=== PATIENT | female | born 1950 | race American Indian/Alaskan Native ===

== ENCOUNTER 2020-05-01 19:22 | Observation (INO) | payer MEDICARE ==
[2020-05-01] MEDS ORDERED: ASPIRIN 325 MG TAB PO ONE (20:05)
--- NOTE | 2020-05-01 20:22 | Emergency Department Report ---
ED Chest Pain HPI - General Chief Complaint: Chest Pain Stated Complaint: CHEST PAIN PUI?: No Time Seen by Provider: 05/01/20 20:17 Source: EMS Mode of arrival: Stretcher Limitations: No Limitations - History of Present Illness Initial Comments: Patient is a 69-year-old female that presents emergency room with complaints of chest pain. Patient states the chest pain is worsened. Patient states the chest pain is in her epigastric and substernal region. Patient states that the chest pain is a pressure sensation. Patient denies shortness of breath. Patient denies nausea and vomiting. Patient denies fever and chills. Patient denies diaphoresis. Patient denies anxiety. Patient states that her primary care sent her here for evaluation. Patient states that her chest pain is a 4 to 5 out of 10. Patient states that her chest pain is better with rest. Patient states that her chest pain is worse with movement and exertion. Patient states she has a past medical history of diabetes hypertension, asthma, dementia and anxiety. Patient states she is living in a personal jail local to this hospital. Patient states she is compliant with all of her medications. Patient states her assisted-living is giving her medications. Patient at this time is alert and oriented x3. Patient is answering questions appropriately. Patient came to the emergency room with a copy of her med sheet and medical record from the assisted living. Patient's medical record and med list were reviewed. Patient denies recent travel. Patient denies recent international travel. Patient denies exposure to the novel coronavirus. Patient denies sick contacts. Patient denies fever and chills. Patient denies cough. Patient denies diarrhea. Patient denies coming in contact with anybody with symptoms of the novel coronavirus. MD Complaint: chest pain -: Sudden Onset: during rest Pain Location: substernal, epigastric Pain Radiation: none Severity: moderate Quality: pressure Consistency: constant Improves With: rest Worsens With: exertion, movement re: denies: nausea, vomting, diaphoresis, dyspnea, sense of impending doom Other Symptoms: denies: cough, fever, syncope, rash, acid taste in mouth, leg swelling, palpitations, burping Treatments Prior to Arrival: none Aspirin use within the Past 7 Days: (1) Yes - Related Data On Oral Contraceptives: No Allergies Allergy/AdvReac Type Severity Reaction Status Date / Time benazepril [From Lotensin] AdvReac Unknown Verified 05/01/20 19:42 lisinopril AdvReac Angioedema Verified 05/01/20 19:42 metformin AdvReac Unknown Verified 05/01/20 19:42 Heart Score - HEART Score History: Slightly suspicious EKG: Normal Age: > 65 Risk factors: > 3 risk factors or hx of atherosclerotic disease Troponin: < normal limit HEART Score: 4 ED Review of Systems ROS: Stated complaint: CHEST PAIN Other details as noted in HPI Constitutional: denies: chills, fever Eyes: denies: eye pain, eye discharge, vision change ENT: denies: ear pain, throat pain Respiratory: denies: cough, shortness of breath, wheezing Cardiovascular: chest pain. denies: palpitations Endocrine: no symptoms reported Gastrointestinal: abdominal pain. denies: nausea, diarrhea Genitourinary: denies: urgency, dysuria, discharge Musculoskeletal: denies: back pain, joint swelling, arthralgia Skin: denies: rash, lesions Neurological: denies: headache, weakness, paresthesias Psychiatric: denies: anxiety, depression Hematological/Lymphatic: denies: easy bleeding, easy bruising ED Past Medical Hx - Past Medical History Previous Medical History?: Yes Hx Hypertension: Yes Hx Diabetes: Yes Hx Asthma: Yes Hx Dementia: Yes Additional medical history: anxiety - Surgical History Past Surgical History?: Yes - Family History Family history: no significant - Social History Smoking Status: Never Smoker Substance Use Type: None ED Physical Exam - General Limitations: No Limitations General appearance: alert, in no apparent distress - Head Head exam: Present: atraumatic, normocephalic - Eye Eye exam: Present: normal appearance, PERRL Pupils: Present: normal accommodation - ENT ENT exam: Present: mucous membranes moist - Neck Neck exam: Present: normal inspection, full ROM. Absent: tenderness, meningismus - Respiratory Respiratory exam: Present: normal lung sounds bilaterally. Absent: respiratory distress, wheezes, rales - Cardiovascular Cardiovascular Exam: Present: regular rate, normal rhythm, normal heart sounds. Absent: systolic murmur, diastolic murmur, rubs, gallop - GI/Abdominal GI/Abdominal exam: Present: soft, tenderness (Epigastric tenderness to palpation. ), normal bowel sounds. Absent: distended, guarding - Rectal Rectal exam: Present: deferred - Extremities Exam Extremities exam: Present: normal inspection - Back Exam Back exam: Present: normal inspection - Neurological Exam Neurological exam: Present: alert, oriented X3 - Psychiatric Psychiatric exam: Present: normal affect, normal mood - Skin Skin exam: Present: warm, dry, intact, normal color. Absent: rash ED Course Vital Signs 05/01/20 05/01/20 05/01/20 19:28 19:36 19:46 Temperature 97.9 F Pulse Rate 65 65 61 Respiratory 16 16 15 Rate Blood Pressure 176/65 Blood Pressure 176/65 [left arm] O2 Sat by Pulse 99 98 Oximetry 05/01/20 05/01/20 05/01/20 20:00 20:30 21:00 Temperature Pulse Rate 62 67 64 Respiratory 14 13 12 Rate Blood Pressure 170/77 176/65 179/75 Blood Pressure [left arm] O2 Sat by Pulse 97 98 98 Oximetry - Reevaluation(s) Reevaluation #1: Patient states the pain is increasing. Patient will be given a GI cocktail and morphine. 05/01/20 21:11 Reevaluation #2: Patient states her pain is better. I discussed all results with patient. I discussed plan of care with patient. Patient agrees with plan of care and admission. Patient to be admitted to the hospitalist service. 05/01/20 21:56 - Consultations Consultation #1: Hospitalist consulted for admission. Hospitalist to admit patient. 05/01/20 21:59 JARRETT score - Jarrett Score Age > 65: (1) Yes Aspirin use within the Past 7 Days: (1) Yes 3 or more CAD Risk Factors: (1) Yes 2 or more Angina events in past 24 hrs: (1) Yes Known CAD with more than 50% Stenosis: (0) No Elevated Cardiac Markers: (0) No ST Deviation Greater than 0.5mm: (0) No JARRETT Score: 4 ED Medical Decision Making - Lab Data Result diagrams: 05/01/20 20:26 05/01/20 20:26 - EKG Data -: EKG Interpreted by Me EKG shows normal: sinus rhythm, axis, intervals, QRS complexes, ST-T waves Rate: normal - Radiology Data Radiology results: report reviewed, image reviewed interpreted by me: Chest x-ray: No pneumonia, no pneumothorax, no foreign body, no osseous findings, no acute findings CHEST 1 VIEW INDICATION: MAIN COMPARISON: None FINDINGS: SUPPORT DEVICES: None. HEART / MEDIASTINUM: No significant abnormality. LUNGS / PLEURA: No significant pulmonary or pleural abnormality. No pneumothorax. ADDITIONAL FINDINGS: IMPRESSION: 1. No acute cardiopulmonary disease - Medical Decision Making Patient is a 69-year-old female that presents emergency room with epigastric pain and chest pain. Patient's gastric region is reproducible. Patient given a GI cocktail, aspirin and morphine. Patient's chest pain improved with the epigastric tenderness did not change. Patient had a chest x-ray was negative for acute findings. Patient's EKG was negative for acute findings. Patient has a past medical history of diabetes and hypertension. Patient has an elevated heart score. Patient has significant cardiac risk factors. Patient admitted to the hospitalist service for further evaluation and treatment and observation and rule out ACS. - Differential Diagnosis ACS, GERD, chest pain, pneumonia, bronchitis, Critical Care Time: Yes Critical care time in (mins) excluding proc time.: 35 Critical care attestation.: If time is entered above; I have spent that time in minutes in the direct care of this critically ill patient, excluding procedure time. Critical Care Time: 35 minutes ED Disposition Clinical Impression: Epigastric pain Renal failure Qualifiers: Renal failure chronicity: acute Acute renal failure type: unspecified Qualified Code(s): N17.9 - Acute kidney failure, unspecified Chest pain Qualifiers: Chest pain type: unspecified Qualified Code(s): R07.9 - Chest pain, unspecified Disposition: 09 OP ADMIT IP TO THIS HOSP Is pt being admited?: Yes Does the pt Need Aspirin: No Condition: Critical Instructions: Chest Pain (ED) Time of Disposition: 21:57
--- NOTE | 2020-05-01 20:56 | XRay Report ---
CHEST 1 VIEW INDICATION: MAIN COMPARISON: None FINDINGS: SUPPORT DEVICES: None. HEART / MEDIASTINUM: No significant abnormality. LUNGS / PLEURA: No significant pulmonary or pleural abnormality. No pneumothorax. ADDITIONAL FINDINGS: IMPRESSION: 1. No acute cardiopulmonary disease Signer Name: Cj Carbajal MD Signed: 05/01/2020 8:52 PM Workstation Name: [id number]
[2020-05-01 21:02] LABS: Hematocrit 33.6 % (30.3-42.9); Hemoglobin 10.9 gm/dl (10.1-14.3); Mean Corpuscular HGB Conc 33 % (30-34); Mean Corpuscular Volume 86 fl (79-97); Platelet Count 237 K/mm3 (140-440); Red Blood Count 3.93 M/mm3 (3.65-5.03); Red Cell Distribution Width 14.7 % (13.2-15.2)
[2020-05-01 21:05] LABS: BUN/Creatinine Ratio 16; Blood Urea Nitrogen 27 mg/dL (7-17); Calcium 9.2 mg/dL (8.4-10.2); Hemolysis Index 4
[2020-05-01] MEDS ORDERED: MORPHINE 2 MG/1 ML INJ IV ONE (21:24)
[2020-05-01] MEDS ORDERED: ONDANSETRON 4 MG/2 ML INJ IV ONE (21:24)
[2020-05-01] MEDS ORDERED: ALUM-MAG HYDROXIDE-SIMETHICONE 200-200-20MG/5ML ORAL LIQD 30 ML PO ONE (21:24)
[2020-05-01] MEDS ORDERED: LIDOCAINE VISCOUS 2% 15 ML ORAL LIQD PO ONE (21:25)
[2020-05-01 21:51] LABS: RBC Morphology Normal; Total Cells Counted 100
[2020-05-01] MEDS ORDERED: cloNIDine 0.1 MG TAB ONE (21:57)
[2020-05-01] MEDS ORDERED: cloNIDine 0.1 MG TAB PO ONE (21:59)
[2020-05-01] MEDS ORDERED: ONDANSETRON 4 MG/2 ML INJ IV PRN (23:25)
[2020-05-01] MEDS ORDERED: MORPHINE 2 MG/1 ML INJ IV PRN (23:25)
[2020-05-01] MEDS ORDERED: ACETAMINOPHEN 325 MG TAB PO PRN (23:25)
[2020-05-01] MEDS ORDERED: NITROGLYCERIN 0.4 MG TAB SUBL SL PRN (23:29)
[2020-05-01] MEDS ORDERED: HEPARIN 5,000 UNIT/1 ML VIAL SUB-Q SCH (23:30)
[2020-05-02] MEDS ORDERED: NITROGLYCERIN 2% OINT 1 GM TP SCH (06:00)
--- NOTE | 2020-05-02 06:33 | History and Physical Report ---
History of Present Illness Date of examination: 05/01/20 Date of admission: 05/01/20 22:03 Chief complaint: CHEST PAIN History of present illness: 69 year old female presenting with dull substernal chest pain and epigastric abdominal pain associated with shortness of breath, nausea but no vomiting, and no diaphoresis. There is no history of cough , fever or chills Past History Past Medical History: diabetes, hypertension, other (1. DEMENTIA. 2 . ASTHMA) Past Surgical History: No surgical history Social history: no significant social history Family history: no significant family history Medications and Allergies Allergies Allergy/AdvReac Type Severity Reaction Status Date / Time benazepril [From Lotensin] AdvReac Unknown Verified 05/01/20 19:42 lisinopril AdvReac Angioedema Verified 05/01/20 19:42 metformin AdvReac Unknown Verified 05/01/20 19:42 Home Medications Medication Instructions Recorded Confirmed Last Taken Type Alendronate Sodium [Fosamax] 70 mg PO QWEEK 05/01/20 05/01/20 Unknown History Colchicine 0.6 mg PO QDAY 05/01/20 05/01/20 Unknown History Diclofenac 1% [Diclofenac 1% 1 applic DS BID 05/01/20 05/02/20 Unknown History topical gel] Fluticasone [Flonase] 1 spray NS DAILY 05/01/20 05/02/20 Unknown History Gabapentin [Neurontin] 400 mg PO BID 05/01/20 05/01/20 Unknown History Insulin Glargine,Hum.rec.anlog 10 unit SC DAILY 05/01/20 05/02/20 Unknown History [Lantus Solostar] Labetalol HCl [Labetalol 300mg TAB] 300 mg PO BID 05/01/20 05/01/20 Unknown History Losartan Potassium 100 mg PO QDAY 05/01/20 05/01/20 Unknown History Memantine [Namenda] 5 mg PO BID 05/01/20 05/01/20 Unknown History Sertraline [Zoloft] 50 mg PO QDAY 05/01/20 05/01/20 Unknown History allopurinoL [Zyloprim] 100 mg PO QDAY 05/01/20 05/01/20 Unknown History amLODIPine [Norvasc] 10 mg PO DAILY 05/01/20 05/01/20 Unknown History cloNIDine [Catapres] 0.2 mg PO BID 05/01/20 05/01/20 Unknown History risperiDONE [RisperDAL] 0.25 mg PO QDAY 05/01/20 05/01/20 Unknown History Active Meds: Active Medications Acetaminophen (Tylenol) 650 mg PO Q4H PRN PRN Reason: Headache Aspirin (Aspirin) 325 mg PO QDAY [facility] Heparin Sodium (Porcine) (Heparin) 5,000 unit SUB-Q Q12HR [facility] Last Admin: 05/02/20 00:30 Dose: 5,000 unit Documented by: Morphine Sulfate (Morphine) 2 mg IV Q4H PRN PRN Reason: Pain, Moderate (4-6) Nitroglycerin (Nitro-Bid 2%) 0.5 inch TP QIDNTG [facility]; Protocol Last Admin: 05/02/20 05:32 Dose: Not Given Documented by: Nitroglycerin (Nitrostat) 0.4 mg SL .Q5MIN PRN PRN Reason: Chest Pain Ondansetron HCl (Zofran) 4 mg IV Q8H PRN PRN Reason: Nausea And Vomiting Review of Systems Constitutional: no fever, no chills, no sweats, no night sweats, no fatigue, no weakness, no malaise Eyes: bilateral: other (NO BILATERAL EYE SYMPTOMS) Ears, nose, mouth and throat: no ear pain Breasts: deferred Cardiovascular: chest pain, shortness of breath, no orthopnea, no palpitations, no rapid/irregular heart beat, no edema, no syncope, no lightheadedness Respiratory: shortness of breath, dyspnea on exertion, no cough, no excessive sputum, no hemoptysis, no congestion, no wheezing, no pleurisy, no pain on inspiration Gastrointestinal: nausea, no abdominal pain, no vomiting, no diarrhea, no constipation, no change in bowel habits, no hematemesis Genitourinary Female: no Menstruation: postmenopausal Rectal: no pain Musculoskeletal: no neck stiffness, no neck pain Integumentary: no rash, no pruritis, no redness, no sores, no wounds Neurological: no paralysis, no weakness, no parathesias, no numbness, no tinglin g, no seizures, no syncope, no tremors, no vertigo, no headaches, no convulsions Psychiatric: no anxiety, no confusion Endocrine: no polydipsia, no polyuria, no nocturia, no flushing Hematologic/Lymphatic: no easy bruising, no easy bleeding, no lymphedema Exam - Constitutional Vitals: Temp Pulse Resp BP Pulse Ox 98.3 F 60 17 161/73 98 05/02/20 05:06 05/02/20 05:06 05/02/20 05:06 05/02/20 05:06 05/02/20 05:06 General appearance: Present: no acute distress - EENT Eyes: Present: PERRL, EOM intact ENT: hearing intact, clear oral mucosa - Neck Neck: Present: supple, normal ROM. Absent: carotid bruits - Respiratory Respiratory effort: normal - Cardiovascular Rhythm: regular Heart Sounds: Present: S1 & S2. Absent: gallop, systolic murmur, diastolic murmur, click - Extremities Extremities: no ischemia, No edema Peripheral Pulses: within normal limits - Abdominal General gastrointestinal: Present: soft, non-tender, non-distended. Absent: tender, distended, rigid, hepatomegaly, splenomegaly, mass Female genitourinary: Present: deferred - Rectal Rectal Exam: deferred - Integumentary Integumentary: Present: clear, warm, dry. Absent: jaundice, rash - Musculoskeletal Musculoskeletal: strength equal bilaterally - Psychiatric Psychiatric: appropriate mood/affect HEART Score - HEART Score EKG: Normal Age: > 65 Risk factors: > 3 risk factors or hx of atherosclerotic disease Troponin: Troponin T < 0.010 ng/mL (0.00-0.029) 05/01/20 22:34 Troponin: < normal limit - Critical Actions Critical Actions: 4-6 pts:12-16.6% risk of adverse cardiac event. Should be admitted (PATIENT UNDERGOING CHEST PAIN WORK UP) Results - Labs CBC & Chem 7: 05/01/20 20:26 05/01/20 20:26 Labs: Laboratory Last Values WBC 5.5 K/mm3 (4.5-11.0) 05/01/20 20: RBC 3.93 M/mm3 (3.65-5.03) 05/01/20 20:26 Hgb 10.9 gm/dl (10.1-14.3) 05/01/20 20: Hct 33.6 % (30.3-42.9) 05/01/20 20: MCV 86 fl (79-97) 05/01/20 20: MCH 28 pg (28-32) 05/01/20 20: MCHC 33 % (30-34) 05/01/20 20: RDW 14.7 % (13.2-15.2) 05/01/20 20: Plt Count 237 K/mm3 (140-440) 05/01/20 20: Lymph % (Auto) Embryology Teacher 05/01/20 20: Add Manual Diff Complete 05/01/20: Total Counted 100 05/01/20 20: Seg Neutrophils % Embryology Teacher 05/01/20 20: Seg Neuts % (Manual) 29.0 % (40.0-70.0) L 05/01/20 20: Band Neutrophils % 0 % 05/01/20 20: Lymphocytes % (Manual) 50.0 % (13.4-35.0) H 05/01/20 20: Reactive Lymphs % (Man) 0 % 05/01/20 20: Monocytes % (Manual) 14.0 % (0.0-7.3) H 05/01/20 20: Eosinophils % (Manual) 5.0 % (0.0-4.3) H 05/01/20 20: Basophils % (Manual) 2.0 % (0.0-1.8) H 05/01/20 20: Metamyelocytes % 0 % 05/01/20 20: Myelocytes % 0 % 05/01/20 20: Promyelocytes % 0 % 05/01/20 20: Blast Cells % 0 % 05/01/20 20: Nucleated RBC % Not Reportable 05/01/20 20: Seg Neutrophils # Man 1.6 K/mm3 (1.8-7.7) L 05/01/20 20: Band Neutrophils # 0.0 K/mm3 05/01/20 20: Lymphocytes # (Manual) 2.8 K/mm3 (1.2-5.4) 05/01/20 20: Abs React Lymphs (Man) 0.0 K/mm3 05/01/20 20: Monocytes # (Manual) 0.8 K/mm3 (0.0-0.8) 05/01/20 20: Eosinophils # (Manual) 0.3 K/mm3 (0.0-0.4) 05/01/20 20:26 Basophils # (Manual) 0.1 K/mm3 (0.0-0.1) 05/01/20 20: Metamyelocytes # 0.0 K/mm3 05/01/20 20: Myelocytes # 0.0 K/mm3 05/01/20 20: Promyelocytes # 0.0 K/mm3 05/01/20 20: Blast Cells # 0.0 K/mm3 05/01/20 20:26 WBC Morphology Not Reportable 05/01/20 20: Hypersegmented Neuts Not Reportable 05/01/20 20: Hyposegmented Neuts Not Reportable 05/01/20 20: Hypogranular Neuts Not Reportable 05/01/20 20: Smudge Cells Not Reportable 05/01/20 20: Toxic Granulation Not Reportable 05/01/20 20: Toxic Vacuolation Not Reportable 05/01/20 20: Dohle Bodies Not Reportable 05/01/20 20: Pelger-Huet Anomaly Not Reportable 05/01/20 20:26 Nicole Rods Not Reportable 05/01/20 20: Platelet Estimate Not Reportable 05/01/20 20: Clumped Platelets Not Reportable 05/01/20 20: Plt Clumps, EDTA Not Reportable 05/01/20 20: Large Platelets Not Reportable 05/01/20 20: Giant Platelets Not Reportable 05/01/20 20: Platelet Satelliting Not Reportable 05/01/20 20: Plt Morphology Comment Not Reportable 05/01/20 20: RBC Morphology Normal 05/01/20 20:26 Dimorphic RBCs Not Reportable 05/01/20 20:26 Polychromasia Not Reportable 05/01/20 20:26 Hypochromasia Not Reportable 05/01/20 20:26 Poikilocytosis Not Reportable 05/01/20 20: Anisocytosis Not Reportable 05/01/20 20:26 Microcytosis Not Reportable 05/01/20 20:26 Macrocytosis Not Reportable 05/01/20 20:26 Spherocytes Not Reportable 05/01/20 20:26 Pappenheimer Bodies Not Reportable 05/01/20 20:26 Sickle Cells Not Reportable 05/01/20 20:26 Target Cells Not Reportable 05/01/20 20:26 Tear Drop Cells Not Reportable 05/01/20 20:26 Ovalocytes Not Reportable 05/01/20 20:26 Helmet Cells Not Reportable 05/01/20 20:26 Hall-Cerulean Bodies Not Reportable 05/01/20 20:26 [place] Rings Not Reportable 05/01/20 20:26 Toan Cells Not Reportable 05/01/20 20:26 Bite Cells Not Reportable 05/01/20 20:26 Crenated Cell Not Reportable 05/01/20 20:26 Elliptocytes Not Reportable 05/01/20 20:26 Acanthocytes (Spur) Not Reportable 05/01/20 20:26 Rouleaux Not Reportable 05/01/20 20:26 Hemoglobin C Crystals Not Reportable 05/01/20 20:26 Schistocytes Not Reportable 05/01/20 20:26 Malaria parasites Not Reportable 05/01/20 20:26 Buddy Bodies Not Reportable 05/01/20 20:26 Hem Pathologist Commnt No 05/01/20 20:26 Sodium 137 mmol/L (137-145) 05/01/20 20:26 Potassium 3.9 mmol/L (3.6-5.0) 05/01/20 20: Chloride 99.9 mmol/L (98-107) 05/01/20 20:26 Carbon Dioxide 27 mmol/L (22-30) 05/01/20 20:26 Anion Gap 14 mmol/L 05/01/20 20:26 BUN 27 mg/dL (7-17) H 05/01/20 20:26 Creatinine 1.7 mg/dL (0.6-1.2) H 05/01/20 20:26 Estimated GFR 36 ml/min 05/01/20 20:26 BUN/Creatinine Ratio 16 % 05/01/20 20:26 Glucose 120 mg/dL (65-100) H 05/01/20 20:26 Calcium 9.2 mg/dL (8.4-10.2) 05/01/20 20:26 Troponin T < 0.010 ng/mL (0.00-0.029) 05/01/20 22:34 Lou/IV: Voiding Method Bedpan IV Catheter Type [right Peripheral IV forearm] Assessment and Plan - Patient Problems (1) Chest pain Current Visit: Yes Status: Acute Qualifiers: Chest pain type: unspecified Qualified Code(s): R07.9 - Chest pain, unspecified Plan to address problem: 1. SERIAL CARDIAC ENZYME 2.NPO 3. LEXISCAN STRESS TEXT 4.NITROPASTE 5. PO ASPIRIN 6 I.V MORPHINE FOR PAIN '7. I.V ZOFRAN FOR NAUSEA 8. TYLENOL FOR HEADACHE (2) Renal failure Current Visit: Yes Status: Acute Qualifiers: Renal failure chronicity: acute Acute renal failure type: unspecified Qualified Code(s): N17.9 - Acute kidney failure, unspecified Plan to address problem: NEPHROLOGY CONSULT
[2020-05-02 07:12] LABS: Creatine Kinase MB 1.9 ng/mL (0.0-4.0)
[2020-05-02 08:29] VITALS: BP 160/74
[2020-05-02] MEDS ORDERED: REGADENOSON 0.4 MG/5 ML INJ IV ONE ×2 (09:32→09:36)
[2020-05-02] MEDS ORDERED: ASPIRIN 325 MG TAB PO SCH (10:00)
--- NOTE | 2020-05-02 13:12 | Consultation ---
History of Present Illness - Reason for Consult Consult date: 05/02/20 acute renal failure - History of Present Illness 69-year-old female that presents emergency room with complaints of chest pain. 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 Currently states that chest pain is stable. Denies any dyspnea, urinary issues. No edema noted. Past History Past Medical History: diabetes, hypertension, other (1. DEMENTIA. 2 . ASTHMA) Past Surgical History: No surgical history Social history: no significant social history Family history: no significant family history Medications and Allergies Allergies Allergy/AdvReac Type Severity Reaction Status Date / Time benazepril [From Lotensin] AdvReac Unknown Verified 05/01/20 19:42 lisinopril AdvReac Angioedema Verified 05/01/20 19:42 metformin AdvReac Unknown Verified 05/01/20 19:42 Home Medications Medication Instructions Recorded Confirmed Last Taken Type Alendronate Sodium [Fosamax] 70 mg PO QWEEK 05/01/20 05/01/20 Unknown History Colchicine 0.6 mg PO QDAY 05/01/20 05/01/20 Unknown History Diclofenac 1% [Diclofenac 1% 1 applic DS BID 05/01/20 05/02/20 Unknown History topical gel] Fluticasone [Flonase] 1 spray NS DAILY 05/01/20 05/02/20 Unknown History Gabapentin [Neurontin] 400 mg PO BID 05/01/20 05/01/20 Unknown History Insulin Glargine,Hum.rec.anlog 10 unit SC DAILY 05/01/20 05/02/20 Unknown History [Lantus Solostar] Labetalol HCl [Labetalol 300mg TAB] 300 mg PO BID 05/01/20 05/01/20 Unknown History Losartan Potassium 100 mg PO QDAY 05/01/20 05/01/20 Unknown History Memantine [Namenda] 5 mg PO BID 05/01/20 05/01/20 Unknown History Sertraline [Zoloft] 50 mg PO QDAY 05/01/20 05/01/20 Unknown History allopurinoL [Zyloprim] 100 mg PO QDAY 05/01/20 05/01/20 Unknown History amLODIPine [Norvasc] 10 mg PO DAILY 05/01/20 05/01/20 Unknown History cloNIDine [Catapres] 0.2 mg PO BID 05/01/20 05/01/20 Unknown History risperiDONE [RisperDAL] 0.25 mg PO QDAY 05/01/20 05/01/20 Unknown History Pantoprazole [Protonix TAB] 40 mg PO QDAY #30 tablet 05/02/20 Unknown Rx Active Meds: Active Medications Acetaminophen (Tylenol) 650 mg PO Q4H PRN PRN Reason: Headache Aspirin (Aspirin) 325 mg PO QDAY [facility] Heparin Sodium (Porcine) (Heparin) 5,000 unit SUB-Q Q12HR [facility] Last Admin: 05/02/20 00:30 Dose: 5,000 unit Documented by: Morphine Sulfate (Morphine) 2 mg IV Q4H PRN PRN Reason: Pain, Moderate (4-6) Nitroglycerin (Nitro-Bid 2%) 0.5 inch TP QIDNTG [facility]; Protocol Last Admin: 05/02/20 05:32 Dose: Not Given Documented by: Nitroglycerin (Nitrostat) 0.4 mg SL .Q5MIN PRN PRN Reason: Chest Pain Ondansetron HCl (Zofran) 4 mg IV Q8H PRN PRN Reason: Nausea And Vomiting Review of Systems All systems: negative (as per HPI) Exam - Vital Signs Vital signs: Vital Signs Temp Pulse Resp BP Pulse Ox 97.9 F 65 16 176/65 99 05/01/20 19:28 05/01/20 19:28 05/01/20 19:28 05/01/20 19:28 05/01/20 19:28 - Physical Exam Narrative exam: Constitutional: no acute distress Head: NC/AT Neck: supple Lungs: clear to auscultation CV: RRR, no M/R/G Abdomen: soft, non-tender, bowel sounds present Back: nontender Extremities: no edema, pulses WNL Skin: intact Neuro: no focal deficits, alert and oriented x4 Results - Lab Results 05/01/20 20:26 05/01/20 20:26 Most recent lab results Calcium 9.2 mg/dL (8.4-10.2) 05/01/20 20:26 Assessment and Plan # Acute Kidney Injury: no clear baseline, has risk factors for CKD including HTN, DM. Will need outpatient follow up for further workup, will follow while inpatient for changes in labs - avoid nephrotoxins - renally dose meds - serologies, PTH, urine studies to be done outpatient - renal ultrasound # Chest Pain: stress test WNL, appreciate input # HTN: continue home meds, on ARB # DM
--- NOTE | 2020-05-02 13:21 | Discharge Summary ---
Providers - Providers Date of Admission: 05/01/20 22:03 Date of discharge: 05/02/20 Attending physician: KELSI CARLSON 05/02/20 06:00 Consult to Physician [CONS] Routine Comment: Consulting Provider: JACLYN AGARWAL Physician Instructions: Reason For Exam: LYNDSAY Primary care physician: HANNAH MARLEY MD Hospitalization Condition: Critical Hospital course: HPI 69-year-old female that presents emergency room with complaints of chest pain. Patient states the chest pain is worsened. Patient states the chest pain is in her epigastric and substernal region. Patient states that the chest pain is a pressure sensation. Patient denies shortness of breath. Patient denies nausea and vomiting. Patient denies fever and chills. Patient denies diaphoresis. Patient denies anxiety. Patient states that her primary care sent her here for evaluation. Patient states that her chest pain is a 4 to 5 out of 10. Patient states that her chest pain is better with rest. Patient states that her chest pain is worse with movement and exertion. Patient states she has a past medical history of diabetes hypertension, asthma, dementia and anxiety. Patient states she is living in a personal fdc local to this hospital. Patient states she is compliant with all of her medications. Patient states her assisted-living is giving her medications. Patient denies recent travel. Patient denies recent international travel. Patient denies exposure to the novel coronavirus. Patient denies sick contacts. Patient denies fever and chills. Patient denies cough. Patient denies diarrhea. Patient denies coming in contact with anybody with symptoms of the novel coronavirus. In the ER, her EKG showed sinus rhythm with no ischemic changes. Troponin x2 were negative. Chest x-ray showed no pneumonia. Patient received GI cocktail, aspirin and morphine. Her chest pain improved. However due to concern for possible acute coronary syndrome, patient was admitted to the hospital for stress test. Patient had a stress test performed showed no reversible ischemia. Patient will be discharged home to follow-up with primary medical doctor. She will be discharged home on PPI. She has been advised to return to the emergency room if she starts having recurrent symptoms Disposition: TO HOME OR SELFCARE - Discharge Diagnoses (1) Chest pain Status: Acute Qualifiers: Chest pain type: unspecified Qualified Code(s): R07.9 - Chest pain, unspecified (2) Epigastric pain Status: Acute Core Measure Documentation - Palliative Care Palliative Care/ Comfort Measures: Not Applicable - Core Measures Any of the following diagnoses?: none Exam - Physical Exam Narrative exam: VITAL SIGNS: Reviewed. GENERAL: Awake and alert on response to questions HEAD: No signs of head trauma. EYES: Pupils are equal. Extraocular motions intact. EARS: Hearing grossly intact. MOUTH: Oropharynx is normal. NECK: No adenopathy, no JVD. CHEST: Chest with diminished breath sounds bilaterally. No wheezes, rales, or rhonchi. CARDIAC: Regular rate and rhythm. S1 and S2, without murmurs, gallops, or rubs. VASCULAR: No Edema. Peripheral pulses normal and equal in all extremities. ABDOMEN: Soft, non tender and non distended. No rebound or guarding, and no masses palpated. Bowel Sounds normal. MUSCULOSKELETAL: Good range of motion of all major joints. Extremities without clubbing, cyanosis or edema. NEUROLOGIC EXAM: Alert and oriented x3. No focal neurologic deficits PSYCHIATRIC: Stable mood SKIN: No obvious lesions - Constitutional Vitals: Temp Pulse Resp BP Pulse Ox 98.4 F 62 18 160/74 100 05/02/20 08:28 05/02/20 12:02 05/02/20 08:28 05/02/20 08:28 05/02/20 08:28 Plan Diet: low fat, low cholesterol, low salt Additional Instructions: Continue pantoprazole 40 mg before breakfast every day for now. Follow-up with PCP Follow up with: HANNAH MARLEY MD [Primary Care Provider] - 3-5 Days Prescriptions: Pantoprazole [Protonix TAB] 40 mg PO QDAY #30 tablet
--- NOTE | 2020-05-02 19:12 | Treadmill Report ---
REFERRING PHYSICIAN: Sanjay Farias MD PROTOCOL: The patient was assessed in postoperative state, given 10 mCi of technetium 99m. The patient underwent rest imaging. The patient underwent Lexiscan stress test per standard protocol. At peak stress, the patient was given 26 mCi die maintenance technician 99m shortly thereafter the patient underwent stress imaging. Raw imaging reveals mild GI artifact, no significant motion artifact. SPECT imaging examined carefully in horizontal long axis, vertical long axis, short axis views. There is normal homogenous uptake of radioisotope in all reported segments. No evidence of significant fixed reversible perfusion defects suggestive of prior infarction or ischemia. Gated wall motion reveals normal systolic thickening, calculated ejection fraction of 61%, no TID. CONCLUSIONS: 1. Normal myocardial perfusion scan without evidence of active ischemia or prior infarction. 2. Normal left ventricular systolic performance without evidence of transient ischemic dilatation or stress-induced segmental wall motion abnormalities. JOB# [id number] SBM/NTS
[2020-05-03] MEDS ORDERED: FLU VACC QUAD 2020-2021 (6 months +)/PF 60 0.5 ML SYRINGE IM ONE (12:00)
== END 2020-05-02 15:40 | disposition home or self-care (01) ==
LOC: ED 19:22 → 4A 22:03
PROVIDERS: ADMIT Internal Medicine; ATTEND Internal Medicine
DX: N19 Unspecified kidney failure (principal); R07.89 Other chest pain; I10 Essential (primary) hypertension; E11.9 Type 2 diabetes mellitus without complications; R10.13 Epigastric pain; J45.909 Unspecified asthma, uncomplicated; F02.80 Dementia in other diseases classified elsewhere, unspecified severity, without behavioral disturbance, psychotic disturbance, mood disturbance, and anxiety; F41.9 Anxiety disorder, unspecified; Z79.4 Long term (current) use of insulin
CPT/HCPCS: 36415; 71045; 78452; 80048; 82550; 82553; 84484; 85025; 93005; 93017; 96372; 96374; 96375; 99291; A9502; G0378; J1644; J2270; J2405; J2785; 85007